=== PATIENT | female | born 1985 | race Caucasian/White ===

== ENCOUNTER 2017-04-24 19:04 | Emergency (ER) | payer OTHER ==
[2017-04-24 19:09] VITALS: BP 122/85; PULSE 86; TEMP 98.8; BMI 27.1
[2017-04-24] MEDS ORDERED: SODIUM CHLORIDE 1,000 ML IV STA (19:37)
[2017-04-24] MEDS ORDERED: ACETAMINOPHEN 1000 MG/100 ML VIAL (NON FORMULARY) IVPB ONE (19:37)
[2017-04-24] MEDS ORDERED: KETOROLAC TROMETHAMINE 30 MG/1 ML VIAL IVPUSH ONE (19:37)
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
[2017-04-24 20:10] LABS: URINE APPEARANCE Clear; URINE BILIRUBIN Negative (NEGATIVE); URINE BLOOD Negative (NEGATIVE); URINE GLUCOSE (UA) Negative (NEGATIVE); URINE KETONE Negative (NEGATIVE); URINE NITRITE Negative (NEGATIVE); URINE PROTEIN Negative (NEGATIVE); URINE UROBILINOGEN 0.2 (0.2-1.0)
[2017-04-24 20:17] LABS: MEAN PLT VOLUME 8.9 fl (7.5-11.1)
[2017-04-24 20:20] LABS: URINE COLOR YELLOW; URINE LEUK ESTERASE TRACE (NEGATIVE)
[2017-04-24] MEDS ORDERED: ACETAMINOPHEN INJECTION 100 ML IVPB ONE (20:24)
[2017-04-24 20:28] LABS: BASOPHIL 0.7 % (0-2.0); EOSINOPHIL 2.5 % (0-4.5); MCHC 33.7 g/dl (32.0-36.0); MEAN CELL VOLUME 88.9 fl (80-96); NEUTROPHILS 64.8 % (42.8-82.8); PLATELET COUNT 298 K/MM3 (134-434); RDW 11.8 % (11.6-15.6); WHITE BLOOD COUNT 10.4 K/mm3 (4.0-10.8)
[2017-04-24 20:36] LABS: ALBUMIN 4.7 g/dl (3.5-5.0); ALK PHOS 54 U/L (32-92); ANION GAP 4 (8-16); BILIRUBIN,TOTAL 0.6 mg/dl (0.2-1.0); CALCIUM 9.8 mg/dl (8.4-10.2); CO2 29 mmol/L (22-28); CREATININE 0.7 mg/dl (0.6-1.3); GLUCOSE,RANDOM 92 mg/dl (74-106); SGOT/AST 18 U/L (10-42); SGPT/ALT 14 U/L (10-40); TOT PROT 7.7 g/dl (6.4-8.3)
[2017-04-24] MEDS ORDERED: KETOROLAC TROMETHAMINE 30 MG/1 ML VIAL ONE (20:55)
[2017-04-24 21:47] LABS: URINE BACTERIA FEW /hpf (NEGATIVE); URINE RBC 0-2 /hpf (0-3)
== END 2017-04-24 21:24 | disposition home or self-care (01) ==
LOC: FER 19:04
PROC: 3E033NZ Introduction of Analgesics, Hypnotics, Sedatives into Peripheral Vein, Percutaneous Approach (ICD-10-PCS; principal; 2017-04-24)
PROC: 3E0333Z Introduction of Anti-inflammatory into Peripheral Vein, Percutaneous Approach (ICD-10-PCS; 2017-04-24)
PROC: 3E0337Z Introduction of Electrolytic and Water Balance Substance into Peripheral Vein, Percutaneous Approach (ICD-10-PCS; 2017-04-24)
DX: M54.2 Cervicalgia (principal); V73.5XXA Driver of bus injured in collision with car, pick-up truck or van in traffic accident, initial encounter; Y93.89 Activity, other specified; Y92.410 Unspecified street and highway as the place of occurrence of the external cause; J45.909 Unspecified asthma, uncomplicated
CPT/HCPCS: 36415; 80053; 81003; 81015; 83690; 84703; 85025; 99283-25

== ENCOUNTER 2017-04-27 10:51 | Emergency (ER) | payer OTHER ==
[2017-04-27 11:00] VITALS: BP 136/97; PULSE 81; TEMP 98; BMI 27.1
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
[2017-04-27] MEDS ORDERED: KETOROLAC TROMETHAMINE 60 MG/2 ML VIAL IM ONE (12:38)
[2017-04-27] MEDS ORDERED: KETOROLAC TROMETHAMINE 60 MG/2 ML VIAL ONE (12:42)
== END 2017-04-27 13:53 | disposition home or self-care (01) ==
LOC: JERFT 10:51
PROC: 3E0233Z Introduction of Anti-inflammatory into Muscle, Percutaneous Approach (ICD-10-PCS; principal; 2017-04-27)
DX: S46.912A Strain of unspecified muscle, fascia and tendon at shoulder and upper arm level, left arm, initial encounter (principal); V73.5XXA Driver of bus injured in collision with car, pick-up truck or van in traffic accident, initial encounter; Y93.89 Activity, other specified; Y92.410 Unspecified street and highway as the place of occurrence of the external cause; Y99.0 Civilian activity done for income or pay; J45.909 Unspecified asthma, uncomplicated
CPT/HCPCS: 73030-TC-LT; 73523-TC; 84703; 99281-25

== ENCOUNTER 2018-10-15 09:36 | Emergency (ER) | payer OTHER | END 2018-10-15 13:43 | disposition home or self-care (01) | LOC: JER 09:36 ==